=== PATIENT | female | born 1950 | race Caucasian/White ===

== ENCOUNTER 2020-10-08 14:16 | Emergency (ER) | payer MEDICARE, SELFPAY ==
[2020-10-08 14:17] VITALS: BP 119/62; PULSE 69; RESP 14; TEMP 36.3; O2SAT 100; BMI 25.8
[2020-10-08 14:22] VITALS: BP 119/62; PULSE 69; RESP 14; TEMP 36.3; O2SAT 100
--- NOTE | 2020-10-08 14:32 | EKG12_ITS ---
Test Reason : CP Blood Pressure : / mmHG Vent. Rate : 061 BPM Atrial Rate : 061 BPM P-R Int : 144 ms QRS Dur : 068 ms QT Int : 424 ms P-R-T Axes : 029 004 021 degrees QTc Int : 426 ms Normal sinus rhythm Normal ECG Confirmed by CHIDI CUEVAS, CAROLYNN ([id number]), video effects editor MARY BARTON ([id number]) on 10/10/2020 8:47:39 AM Referred By: ALEJANDRO Confirmed By:CAROLYNN MURILLO MD
--- NOTE | 2020-10-08 14:40 | RAD_ITS ---
STUDY: X-RAY CHEST REASON FOR EXAM: Female, 70 years old. Epigastric pain, CURRY, sob TECHNIQUE: Single AP portable view of the chest. COMPARISON: None. FINDINGS: EKG electrodes are seen. Hyperinflation. The lungs are clear. There is no demonstrated pleural abnormality. Normal size heart. Normal mediastinum and kannan. Normal visualized pulmonary arteries. There is atherosclerotic calcification of the aortic arch with tortuosity. Normal visualized thoracic spine. Normal visualized ribs, clavicles, and shoulders. There is no demonstrated abnormality of the visualized soft tissue structures of the upper abdomen. RAD/Chest 1 View (Portable) IMPRESSION: Hyperinflation. Electronically Signed: Kaiser Braun, at 14:54 EST , Service support ,
[2020-10-08 14:44] LABS: Absolute Lymphocyte Count 2.16 X10^3/uL (0.83-4.51); Absolute Neutrophil Count 4.4 X10^3/uL (2.0-7.7); Basophil# 0.04 X10^3/uL; Basophil% 0.5 % (0-1); Eosinophils% 2.7 % (0-5); Hematocrit 46.6 % (37-47); Lymphocyte # 2.16 X10^3/ul (4.0); Mean Corp Hgb Conc 32.2 g/dL (32-36); Mean Corpuscular Hgb 30.2 pg (27.0-32.0); Mean Platelet Vol. 8.9 fl (6.2-12.0); Monocyte# 0.62 X10^3/uL; Monocyte% 8.3 % (0-10); NRBC Flagged by Analyzer 0 % (0-5); Neutrophil # 4.38 X10^3/uL (2.7-7.7); Platelet Count 307 K/mm3 (150-450); RBC Distribution Width CV 13.2 % (11.6-14.6); RBC Distribution Width SD 45.1 fl (35.1-43.9); Red Blood Count 4.96 M/mm3 (4.2-5.4); White Blood Count 7.4 K/mm3 (4.4-11.0)
[2020-10-08 14:53] LABS: Prothrombin Time (Protime)PT. 12.8 SECONDS (11.7-14.9)
[2020-10-08 14:59] LABS: Anion Gap 3 (5-15); BUN 12 mg/dL (7-18); BUN/Creat Ratio 15.1 RATIO (10-20); Calcium,Total 10.2 mg/dL (8.5-10.1); Chloride 105 mmol/L (98-107); EST Glomerular Filtration Rate 76 mL/min (>60); Est Glom Filt Rate - Afr Amer 92 mL/min (>60); Glucose 97 mg/dL (74-106); Potassium 3.7 mmol/L (3.5-5.1); Sodium Level 141 mmol/L (136-145)
[2020-10-08 15:13] LABS: Lipase 122 U/L (73-393)
--- NOTE | 2020-10-08 15:17 | ED.DCSUM_ITS ---
- ER Visit Summary Date of Service: 10/08/20 Chief Complaint: Back pain, headache, chest pain History of Present Illness: The patient is a 70 F who has had the above symptoms for 3 days. She states pain starts in the left paraspinal region and radiates forward into her chest. She has had a cough and sinus drainage. She denies fevers. The pain is intermittent in nature. She went to her primary care physician who directed her here. Patient does have a history mitral prolapse. She has no coronary disease history. Denies any exposures to anybody with coronavirus. Physical Examination: Vital signs reviewed. HEENT exam unremarkable. Heart is regular rate and rhythm without murmurs. Lungs are clear to auscultation. Abdomen is soft and nontender. Extremities reveal no edema. Peripheral pulses are equal. Skin exam normal. Neurologic exam normal. Test Results: [EKG is sinus rhythm with rate of 61. No ST changes. Laboratory studies are unremarkable except for a CO2 of 33. D-dimer and troponin are normal. Chest x-ray shows chronic hyperinflation. Emergency Department Course and Treatment: The patient looks very well. She is dealing with some sinus drainage. I will give her Mucinex D to help with this. I do not feel she needs any admission for any cardiac issues as this is atypical in nature. She will call her doctor for follow-up. Treatment Plan: [] Disposition: Discharge Impression: Sinusitis, back pain headache This note was generated with [employer] dictation software. It may contain incorrect words, spelling, and punctuation that were not noted in review of the chart prior to signing ED Disposition - Plan for ED Patient: Disposition: Home or Assisted Living Instructions: ED Sinusitis No Abx Prescriptions: Guaifenesin/Pseudoephedrne HCl [Mucinex D ER 600-60 mg Tablet] 1 ea PO BID #[id number] tab.er.12h Transmission Status: Pending to [id number] Referrals: Samuel Coley MD [Primary Care Provider] -
[2020-10-08 16:03] VITALS: BP 104/68; PULSE 71; RESP 16; O2SAT 100
--- NOTE | 2020-10-08 16:04 | ED.RN ---
IV DC'ED, CATHETER INTACT, SMALL GAUZE DRESSING PLACED. DISCHARGE INSTRUCTIONS GIVEN TO AND REVIEWED WITH PATIENT, PATIENT DENIES QUESTIONS OR CONCERNS AND VOICES UNDERSTANDING OF DISCHARGE INSTRUCTIONS. PT AMBULATES OUT OF ROOM WITHOUT DIFFICULTY.
== END 2020-10-08 16:06 | disposition home or self-care (01) ==
PROVIDERS: Emergency Provider Emergency Medicine; PCP Family Medicine
DX: J32.9 Chronic sinusitis, unspecified (principal); M54.9 Dorsalgia, unspecified; I34.1 Nonrheumatic mitral (valve) prolapse
CPT/HCPCS: 71045; 80048; 83690; 84484; 85025; 85379; 85610; 93005; 99285

== ENCOUNTER 2021-05-24 17:32 | Emergency (ER) | payer MEDICARE, SELFPAY ==
[2021-05-24 17:33] VITALS: BP 121/58; PULSE 72; RESP 16; TEMP 36.4; O2SAT 99; BMI 25.7
[2021-05-24 17:43] VITALS: BP 121/58; PULSE 72; RESP 16; TEMP 36.4; O2SAT 99
[2021-05-24 17:53] LABS: Absolute Lymphocyte Count 2.23 X10^3/uL (0.83-4.51); Absolute Neutrophil Count 5.1 X10^3/uL (2.0-7.7); Basophil# 0.06 X10^3/uL; Basophil% 0.7 % (0-1); Eosinophil# 0.26 X10^3/uL; Eosinophils% 3.2 % (0-5); Hematocrit 45.3 % (37-47); Hemoglobin 14.9 g/dL (12.0-15.0); Lymphocyte # 2.23 X10^3/ul (0.83-4.51); Lymphocyte % 27.1 % (19-41); Mean Corp Hgb Conc 32.9 g/dL (32-36); Mean Corpuscular Hgb 30.7 pg (27.0-32.0); Mean Corpuscular Volume 93.4 fL (81-99); Monocyte# 0.58 X10^3/uL; Monocyte% 7.1 % (0-10); NRBC Flagged by Analyzer 0 % (0-5); Neutrophil # 5.07 X10^3/uL (2.7-7.7); Neutrophil % 61.7 % (47-70); Platelet Count 308 K/mm3 (150-450); RBC Distribution Width CV 13.3 % (11.6-14.6); RBC Distribution Width SD 45.4 fl (35.1-43.9); Red Blood Count 4.85 M/mm3 (4.2-5.4); White Blood Count 8.2 K/mm3 (4.4-11.0)
[2021-05-24 18:14] LABS: ALB/GLOB Ratio 1.2 RATIO (0.9-2.4); AST(SGOT) 24 U/L (15-37); Alanine Aminotransfer ALT/SGPT 22 U/L (13-56); Alkaline Phosphatase 68 U/L (45-117); Anion Gap 5 (5-15); BUN 19 mg/dL (7-18); BUN/Creat Ratio 24.3 RATIO (10-20); Calcium,Total 9.4 mg/dL (8.5-10.1); Chloride 105 mmol/L (98-107); Creatinine, Serum 0.78 mg/dL (0.55-1.02); EST Glomerular Filtration Rate 77 mL/min (>60); Est Glom Filt Rate - Afr Amer 93 mL/min (>60); Globulin 3.3 g/dL (2.2-4.2); Glucose 91 mg/dL (74-106); Potassium 3.7 mmol/L (3.5-5.1); Protein, Total 7.3 g/dL (6.4-8.2); Sodium Level 139 mmol/L (136-145)
--- NOTE | 2021-05-24 18:55 | US_ITS ---
STUDY: ABDOMINAL ULTRASOUND - RIGHT UPPER QUADRANT REASON FOR VISIT: Female, 70 years old RUQ pain TECHNIQUE: Ultrasound evaluation of the right upper quadrant was performed with real-time and static fields-scale imaging. TECHNICAL QUALITY: Adequate. COMPARISON: None. FINDINGS: Liver: The liver measures 15.4 cm. There is normal echogenicity of the liver. The bile ducts are within normal limits. There is hepatic color flow. The direction of portal flow is hepatopetal. There is no demonstrated mass lesion. Gallbladder: Normal distended gallbladder. The gallbladder wall measures 2 mm. There is a negative sonographic Saul''s sign. There is no pericholecystic fluid. There are no gallstones. Common Bile Duct (C.B.D.): The common bile duct measures 3 mm. Pancreas: Visualized segments are unremarkable. The tail is incompletely seen. There is normal echogenicity of the pancreas. There is no demonstrated pancreatic mass or cyst. Right Kidney: Normal size of the right kidney. The right kidney measures 9.7 x 3.3 x 4.2 cm. Normal renal cortex. The right cortex measures 1.1 cm. There is no demonstrated renal mass or cyst. There is no right hydronephrosis. US/Gallbladder IMPRESSION: Normal right upper quadrant ultrasound examination. Electronically Signed: Yaneth Abreu MD at 20:32 EDT Tel , Service support ,
[2021-05-24 19:01] LABS: Bacteria 0 SEEN /hpf (None Seen); Mucous, Urine 0 SEEN /hpf (<or=2+); Red Blood Cells-Urine 0 SEEN /hpf (0-5); White Blood Cells 0 SEEN /hpf (0-5)
[2021-05-24 19:04] LABS: Color, Urine Yellow (Yellow); Glucose, Dipstick Normal (Normal); Ketone-Dipstick 15 mg/dl (Negative); Leukocyte Esterase-Dipstick Negative /ul (Negative); Nitrite-Dipstick Negative (Negative); Occult Blood-Urine Negative /ul (Negative); Protein-Dipstick Negative (Negative); Urine Bilirubin Dipstick Negative (Negative); Urine Clarity Sl. Cloudy (Clear); Urine Urobilinogen Normal (Normal)
[2021-05-24 19:09] LABS: Lipase 165 U/L (73-393)
[2021-05-24 19:10] LABS: Squamous Epithelial Cells - UA 0-5 SEEN /hpf (5-10)
--- NOTE | 2021-05-24 19:10 | EDS_ITS ---
HPI HPI - GI History of Present Illness Chief Complaint: Abd Pain Narrative Narrative: 70-year-old female presenting with right upper quadrant pain. She states this started at 3. She states it waxes and wanes. It radiates to the right flank and back. Patient states she has nausea as well. Patient states her last meal was at 1 PM and was a turkey sandwich. She denies history of gallbladder disease. She does not have chest pain or shortness of breath. She denies constipation or diarrhea. PFSH PFSH Home Medications NK 05/24/21 [History Last Taken Unknown] Allergy/AdvReac Type Severity Reaction Status Date / Time cortisone Allergy Chest Verified 10/08/20 14:27 tightness AND HIVES Penicillins [PCN] Allergy RASH AND Verified 10/08/20 14:27 VOMITING Social History Smoking Status: Never smoker ROS ROS ED Constitutional Constitutional ED: Denies fever(s) or subjective ENT ENT ED: Denies ear pain, rhinorrhea or sore throat Cardiovascular Cardiovascular: Denies chest pain or palpitations Respiratory/Chest Respiratory/Chest: Denies cough or dyspnea Gastrointestinal Gastrointestinal: Reports abdominal pain and nausea; Denies constipation, diarrhea or vomiting Genitourinary Genitourinary ED: Denies dysuria or hematuria Musculoskeletal Musculoskeletal: Denies arthralgias or myalgias Integumentary Denies abscess or rash Neurologic Neurologic: Denies headache(s) or paresthesias Psychiatric Psychiatric: Denies depression EXAM Physical Exam Const Vital Signs: 05/24/21 17:33 05/24/21 17:43 05/24/21 19:32 Temperature 97.6 F L 97.6 F L Temperature Source Temporal Temporal Pulse Rate 72 72 65 Respiratory Rate 16 16 16 Blood Pressure 121/58 H 121/58 H 112/61 Blood Pressure Mean 79 79 78 Pulse Ox 99 99 99 Oxygen Delivery Method Room Air Room Air Room Air 05/24/21 22:52 Temperature Temperature Source Pulse Rate 61 Respiratory Rate 16 Blood Pressure 118/64 Blood Pressure Mean 82 Pulse Ox 100 Oxygen Delivery Method Room Air Positive well nourished General Appearance ED: NAD HEENT Reports moist mucous membranes normocephalic and atraumatic Eyes PERRL and EOMs intact bilaterally General Eye ED: Negative for scleral icterus Resp normal respiratory effort and clear to auscultation bilaterally Cardio regular rate and regular rhythm GI GI Narrative: Tenderness to palpation in the right upper quadrant. Abdomen is nonperitoneal. Neuro Sensorium / Orientation: alert and oriented to person Psych mental status grossly normal Skin General Skin Exam: Negative for jaundice Lesions: no lesions Rashes: no rashes MDM MDM MDM Narrative Medical decision making narrative: Patient presenting with right upper abdominal pain. She had concern for a gallbladder issue. Lab work today shows that she is a white count of 8.2, hemoglobin 14.9, hematocrit 45.3, platelets 308. CMP shows normal renal function and electrolytes. LFTs are normal. Lipase is within normal limits. Urinalysis is negative for infection. Gallbladder ultrasound is negative for acute findings. At this point I obtained a CT of the abdomen pelvis with IV contrast which also does not show any acute findings. Patient was offered pain medication on arrival and multiple times throughout her stay however she refuses and states she does not want anything too strong. She was offered antiemetics as well and states she does not want this. After negative work-up she was still having pain and I offered her something for pain before leaving but she states that she does not want this. She did ask for a prescription for something for pain for home although I told her I cannot write her prescription when I did not find any diagnoses that would warrant it. She was offered an oxycodone here but she states she does not want anything not strong. Her voiced concern that he wanted her to stay however she is adamant that she wants to go home. She was offered follow-up with general surgery in case she possibly needs an upper endoscopy and she declines this and states she will go to her primary care physician. Patient is discharged in stable condition. Impression: 1. Abdominal pain unknown cause Lab Data Labs: Laboratory Results - last 24 hr 05/24/21 05/24/21 05/24/21 17:42 17:42 17:42 WBC 8.2 RBC 4.85 Hgb 14.9 Hct 45.3 MCV 93.4 MCH 30.7 MCHC 32.9 RDW Std Deviation 45.4 H RDW Coeff of Kate 13.3 Plt Count 308 MPV 9.0 Immature Gran % (Auto) 0.200 Neut % (Auto) 61.7 Lymph % (Auto) 27.1 Hunt % (Auto) 7.1 Eos % (Auto) 3.2 Baso % (Auto) 0.7 Absolute Neuts (auto) 5.1 Absolute Lymphs (auto) 2.23 Nucleated RBC % 0 Sodium 139 Potassium 3.7 Chloride 105 Carbon Dioxide 29.0 Anion Gap 5 BUN 19 H Creatinine 0.78 Estim Creat Clear Calc 37.60 Est GFR (MDRD) Af Amer 93 Est GFR (MDRD) Non-Af 77 BUN/Creatinine Ratio 24.3 H Glucose 91 Calcium 9.4 Total Bilirubin 0.40 AST 24 ALT 22 Alkaline Phosphatase 68 Total Protein 7.3 Albumin 4.0 Globulin 3.3 Albumin/Globulin Ratio 1.2 Lipase 165 Urine Color Urine Clarity Urine pH Ur Specific [place] Urine Protein Urine Glucose (UA) Urine Ketones Urine Occult Blood Urine Nitrite Urine Bilirubin Urine Urobilinogen Ur Leukocyte Esterase Urine RBC Urine WBC Ur Squamous Epith Cells Urine Bacteria Urine Mucus 05/24/21 18:50 WBC RBC Hgb Hct MCV MCH MCHC RDW Std Deviation RDW Coeff of Kate Plt Count MPV Immature Gran % (Auto) Neut % (Auto) Lymph % (Auto) Hunt % (Auto) Eos % (Auto) Baso % (Auto) Absolute Neuts (auto) Absolute Lymphs (auto) Nucleated RBC % Sodium Potassium Chloride Carbon Dioxide Anion Gap BUN Creatinine Estim Creat Clear Calc Est GFR (MDRD) Af Amer Est GFR (MDRD) Non-Af BUN/Creatinine Ratio Glucose Calcium Total Bilirubin AST ALT Alkaline Phosphatase Total Protein Albumin Globulin Albumin/Globulin Ratio Lipase Urine Color Yellow Urine Clarity Sl. Cloudy Urine pH 6.0 Ur Specific [place] 1.010 Urine Protein Negative Urine Glucose (UA) Normal Urine Ketones 15 H Urine Occult Blood Negative Urine Nitrite Negative Urine Bilirubin Negative Urine Urobilinogen Normal Ur Leukocyte Esterase Negative Urine RBC 0 SEEN Urine WBC 0 SEEN Ur Squamous Epith Cells 0-5 SEEN Urine Bacteria 0 SEEN Urine Mucus 0 SEEN Radiography Diagnostic Testing: Radiology Impression Gallbladder Ultrasound 05/24/21 18:55 IMPRESSION: Normal right upper quadrant ultrasound examination. Electronically Signed: Yaneth Abreu MD at 20:32 EDT Tel , Service support , Abdomen/Pelvis CT 05/24/21 21:39 IMPRESSION: 1. No acute findings. 2. Old granulomatous disease. 3. L5 spondylolysis. Electronically Signed: Yaneth Abreu MD at 23:16 EDT Tel , Service support , Discharge Plan Triage Chief Complaint: Abd Pain ED Provider: Saw Israel Dx/Rx/DC Orders Instructions: ED Abdominal Pain Unkn Cause Fem Prescriptions: No Action NK RF: 0 Primary Care Provider: Samuel Coley Referrals: Samuel Coley MD [Primary Care Provider] - Disposition Disposition: Home, Self Care
[2021-05-24 19:32] VITALS: BP 112/61; PULSE 65; RESP 16; O2SAT 99
--- NOTE | 2021-05-24 21:39 | CT_ITS ---
STUDY: CT ABDOMEN AND PELVIS WITH CONTRAST REASON FOR EXAM: Female, 70 years old. abdominal pain RADIATION DOSAGE (If Supplied By Facility): CTDIvol = ( 14.60 ) mGy, DLP = ( 576.97 ) mGycm TECHNIQUE: Transaxial images were obtained from the dome of the diaphragm to the symphysis pubis without oral contrast. IV 100mL Isovue-[id number] was administered. Sagittal and coronal images were reconstructed. Individualized dose optimization techniques were used for this CT. COMPARISON: None. FINDINGS: Lung bases are clear. Heart size is normal. The liver is unremarkable. The gallbladder is unremarkable. Multiple splenic granulomatous calcifications. The spleen is otherwise unremarkable. Pancreas is unremarkable. The adrenal glands are normal. The kidneys are unremarkable. No stones or hydronephrosis. The aorta is normal in caliber. There is no free fluid, free air or organized collection. No bowel obstruction or inflammatory change. Normal appendix. Urinary bladder is unremarkable. Normal abdominal wall. Bilateral L5 spondylolysis. No spondylolisthesis. No acute osseous abnormality. CT/Abdomen/Pelvis W IV Cont ONLY IMPRESSION: 1. No acute findings. 2. Old granulomatous disease. 3. L5 spondylolysis. Electronically Signed: Yaneth Abreu MD at 23:16 EDT Tel , Service support ,
[2021-05-24 22:52] VITALS: BP 118/64; PULSE 61; RESP 16; O2SAT 100
== END 2021-05-24 23:44 | disposition home or self-care (01) ==
PROVIDERS: Emergency Provider Student in an Organized Health Care Education/Training Program; PCP Family Medicine
DX: R10.11 Right upper quadrant pain (principal); R11.0 Nausea
CPT/HCPCS: 74177; 76705; 80053; 81001; 83690; 85025; 99283; J7050; Q9967; A4216

== ENCOUNTER → 2021-08-06 10:12 | Outpatient (CLI) | payer MEDICARE, SELFPAY ==
[2021-06-14 08:09] VITALS: BMI 26.2
--- NOTE | 2021-08-06 10:29 | MRI_ITS ---
STUDY: MRI THORACIC SPINE WITHOUT CONTRAST REASON FOR EXAM: Female, 70 years old. pain TECHNIQUE: Standardized fat and water weighted pulse sequences were obtained in the sagittal and axial planes. COMPARISON: None. FINDINGS: Normal kyphosis of the thoracic spine. There is no substantial scoliosis. T1-2, T2-3, T3-4, T4-5, T5-6, T6-7, T7-8, T8-9, T9-10, T10-11, T11-12: Normal endplates. Normal disc hydration, heights and morphology of the corresponding intervertebral discs. Normal central canal and intervertebral neural foramina at the corresponding levels. Normal visualized thoracic cord. Normal conus medullaris that terminates at the L1.. The soft tissue structures are unremarkable. MRI/Spine Thoracic (Routine) IMPRESSION: Normal unenhanced MRI examination of the thoracic spine. Electronically Signed: Francis Bean MD at 14:13 EDT Tel , Service support ,
== END ==
PROVIDERS: PCP Family Medicine; Referring Provider Orthopaedic Surgery; Visit Provider Orthopaedic Surgery
DX: M51.24 Other intervertebral disc displacement, thoracic region (principal); G58.8 Other specified mononeuropathies
CPT/HCPCS: 72146

== ENCOUNTER → 2022-04-10 | Outpatient (CLI) | payer MEDICARE, SELFPAY | END | disposition home or self-care (01) | LOC: SL 10:01 | PROVIDERS: PCP Family Medicine; Visit Provider Family Medicine | DX: Z00.00 Encounter for general adult medical examination without abnormal findings (principal) ==

== ENCOUNTER → 2022-05-06 | Outpatient (CLI) | payer MEDICARE, SELFPAY | END | disposition home or self-care (01) | LOC: SL 11:31 | PROVIDERS: PCP Family Medicine; Visit Provider Nurse Practitioner Family | DX: R69 Illness, unspecified (principal) ==

== ENCOUNTER → 2022-05-29 | Outpatient (CLI) | payer MEDICARE, SELFPAY | END | disposition home or self-care (01) | LOC: SL 09:03 | PROVIDERS: PCP Family Medicine; Visit Provider Nurse Practitioner Family | DX: R69 Illness, unspecified (principal) ==

== ENCOUNTER → 2022-07-15 | Outpatient (CLI) | payer MEDICARE, SELFPAY | END | disposition home or self-care (01) | LOC: SL 11:23 | PROVIDERS: PCP Family Medicine; Visit Provider Nurse Practitioner Family | DX: R69 Illness, unspecified (principal) ==

== ENCOUNTER → 2023-04-03 | Outpatient (CLI) | payer MEDICARE, SELFPAY | END | disposition home or self-care (01) | LOC: SL 08:50 | PROVIDERS: PCP Family Medicine; Visit Provider Family Medicine | DX: Z00.00 Encounter for general adult medical examination without abnormal findings (principal) ==

== ENCOUNTER → 2024-04-19 | Outpatient (CLI) | payer MEDICARE, SELFPAY | END | disposition home or self-care (01) | LOC: SL 09:39 | PROVIDERS: PCP Family Medicine; Visit Provider Family Medicine | DX: R69 Illness, unspecified (principal) ==

== ENCOUNTER 2025-04-27 22:14 | Observation (INO) | payer MEDICARE, SELFPAY ==
[2025-04-27 22:15] VITALS: BP 105/63; PULSE 71; RESP 16; TEMP 35.8; O2SAT 97
--- NOTE | 2025-04-27 22:44 | CT_ITS ---
PROCEDURE: SINUS/FACIAL BONE REASON FOR EXAM: FALL TECHNIQUE: CT of the paranasal sinuses without contrast. Coronal and Sagittal reconstruction series were provided. One or more dose reduction techniques were used (e.g., Automated exposure control, adjustment of the mA and/or kV according to patient size, use of iterative reconstruction technique). COMPARISON: None. FINDINGS: Frontal: Clear. Ethmoid: Clear. Sphenoid: Clear. Maxillary: Tiny nondisplaced fracture of the floor of the left orbit. Trace fluid level in the left maxillary sinus. No evidence of ocular muscle herniation. Turbinates: Unremarkable Nasal Septum: Leftward deviation of the bony nasal septum by 3 mm. Mastoids/Middle Ears: Clear. Soft tissue swelling/hematoma overlying the left frontal bone. Absent little traverse ocular lenses. The globes are intact. CT/Sinus/Facial Bone IMPRESSION: Tiny nondisplaced fracture of the left maxillary sinus roof of undetermined age with trace fluid within the left maxillary sinus. Soft tissue swelling/hematoma overlying the left frontal bone. Reading Location: [id number]
--- NOTE | 2025-04-27 22:45 | CT_ITS ---
PROCEDURE: BRAIN/HEAD WITHOUT CONTRAST 04/27/2025 REASON FOR EXAM: INJURY/PAIN TECHNIQUE: Head CT without intravenous contrast. Coronal and Sagittal reconstruction series were provided. One or more dose reduction techniques were used (e.g., Automated exposure control, adjustment of the mA and/or kV according to patient size, use of iterative reconstruction technique. RADIATION DOSE SUMMARY: DLP: 880.47 mGycm COMPARISON: None. FINDINGS: Brain: No evidence of acute hemorrhage or infarction. Mild chronic microvascular ischemia. CSF Spaces: Mild generalized cerebral atrophy Bones: The calvarial vault and skull base are intact. See same day CT face for facial bone details. Soft tissue swelling/hematoma overlying the left anterior frontal bone. CT/Brain/Head without Contrast IMPRESSION: No acute intracranial abnormality. See same-day CT face for facial bone details. Reading Location: [place] [id number]
--- NOTE | 2025-04-27 22:46 | ED.VIS.FALL ---
HPI HPI - Fall History of Present Illness Chief Complaint: Fall Informant: patient, spouse/S.O. and family Occured/Mechanism Occurred: Today Mechanism/Context: Yes same level fall and Yes cannot recall fall Pain/Injury Location: Left periorbital area and left occipital scalp Pain Location: head Worsened by: Nothing Relieved by: Nothing Associated Symptoms Associated Symptoms: Positive for Amnesia; Negative for Parasthesias, Weakness, Inability to ambulate or Loss of consciousness Narrative Narrative: Patient presents after a fall that occurred tonight. Patient was talking on the phone on her back deck when she fell. heard the patient scream and when he went out to check on her she was laying on the deck. Patient does not remember any events of the day. Patient was unsure if she had any loss of consciousness. Patient admits to some pain and swelling over the left periorbital area. Patient also hit the back of her head as there is some bleeding coming from the occipital scalp. PFSH PFS Medical History No active medical problems Home Medications ?Medication ?Instructions ?Recorded ?Last Taken ?Type coenzyme Q10 30 mg chewable tablet 30 mg PO DAILY 04/28/25 Unknown History (Chew Q) ezetimibe 10 mg tablet 10 mg PO DAILY 04/28/25 Unknown History multivitamin (Daily Multi-Vitamin 1 tab PO DAILY 04/28/25 Unknown History tablet) Allergy/AdvReac Type Severity Reaction Status Date / Time bee pollen Allergy Severe Hives, Verified 04/27/25 22:15 chest pain, difficulty breathing shrimp Allergy Severe Anaphylaxis Verified 04/27/25 22:15 cortisone Allergy Intermediate Chest Verified 04/27/25 22:15 tightness AND HIVES Penicillins (PCN) Allergy RASH, Verified 04/27/25 22:15 nausea, VOMITING, and difficulty breathing Family History Father Melanoma Mother Small cell carcinoma Son Synovial sarcoma Brother Parkinsons disease Surgical History Hx of tonsillectomy Social History household members: spouse housing: house Smoking Status: Never smoker alcohol intake: current alcohol intake frequency: a few times a week what type of physical activity do you participate in: other details: gardening, forest management, golf, pickle ball do you feel safe at home: Yes ROS ROS ED Constitutional Constitutional ED: Denies chills or fever(s) Eyes Eyes: Denies blurry vision or change in vision ENT ENT ED: Denies rhinorrhea or sore throat Cardiovascular Cardiovascular: Denies chest pain or palpitations Respiratory/Chest Respiratory/Chest: Denies cough or dyspnea Gastrointestinal Gastrointestinal: Reports nausea and vomiting Genitourinary Genitourinary ED: Denies dysuria or hematuria Musculoskeletal Musculoskeletal: Denies back pain or neck pain Integumentary Denies abscess or rash Neurologic Neurologic: Reports headache(s); Denies weakness Allergic/Immunologic Allergic/Immunologic ED: Denies mouth swelling or urticaria EXAM Physical Exam Const Vital Signs: 04/27/25 22:15 04/27/25 23:14 04/27/25 23:14 Temperature 96.5 F L Temperature Source Temporal Pulse Rate 71 73 Respiratory Rate 16 15 Respiratory Effort Normal Respiratory Depth Normal Respiratory Pattern Normal Blood Pressure 105/63 121/64 H Blood Pressure Mean 77 83 Pulse Ox 97 97 Oxygen Delivery Method Room Air Room Air 04/28/25 00:14 Temperature Temperature Source Pulse Rate 76 Respiratory Rate 14 Respiratory Effort Respiratory Depth Respiratory Pattern Blood Pressure 110/52 L Blood Pressure Mean 71 Pulse Ox 97 Oxygen Delivery Method Room Air Positive well nourished and well developed General Appearance ED: well developed and NAD HEENT HEENT Narrative: There is edema and ecchymosis of the left periorbital area. There is edema of the left upper eyelid. There is some mild tenderness over the superior lateral aspect of the orbit. There is no bony crepitance or step-off noted. There is also an abrasion over the left occipital scalp. There is dried blood noted in the hair. Neck full ROM and supple Resp normal respiratory effort and clear to auscultation bilaterally Cardio regular rate and regular rhythm GI non-tender and non-distended Palpation: soft Neuro oriented x3, CN's II-XII intact bilaterally, moves all extremities, no focal motor deficits and no sensory deficits noted Cal[place]so Coma Scale: document GCS findings Spontaneous Obeys Commands Oriented 15 Sensorium / Orientation: alert Motor Exam: strength 5/5 throughout Psych mental status grossly normal MDM MDM MDM Narrative Medical decision making narrative: Differential diagnosis includes intracranial bleeding, orbital fracture, concussion, and facial contusion. CT scan of the brain will be obtained to assess for intracranial bleeding. CT scan of the facial bones will be obtained to assess for orbital fracture and facial fracture. Lab Data Labs: Laboratory Results - last 24 hr 04/27/25 22:32 WBC 10.7 RBC 4.83 Hgb 14.9 Hct 44.5 MCV 92.1 MCH 30.8 MCHC 33.5 RDW Std Deviation 44.4 H RDW Coeff of Kate 13.2 Plt Count 310 MPV 9.2 Immature Gran % (Auto) 2.000 H Neut % (Auto) 60.2 Lymph % (Auto) 27.0 [place] % (Auto) 7.2 Eos % (Auto) 2.9 Baso % (Auto) 0.7 Absolute Neuts (auto) 6.5 Absolute Lymphs (auto) 2.90 Nucleated RBC % 0 Radiography Diagnostic Testing: Clinical Impression(s) from Imaging Studies Facial/Sinus 04/27/25 22:44 IMPRESSION: Tiny nondisplaced fracture of the left maxillary sinus roof of undetermined age with trace fluid within the left maxillary sinus. Soft tissue swelling/hematoma overlying the left frontal bone. Reading Location: [id number] Brain [address] 04/27/25 22:45 IMPRESSION: No acute intracranial abnormality. See same-day CT face for facial bone details. Reading Location: [id number] CT scan of the brain was obtained. There is no acute intracranial abnormality. This was interpreted by the radiologist and was also independently reviewed by myself. CT scan of the facial bones was obtained. There is a tiny nondisplaced fracture of the left maxillary sinus roof with trace fluid within the left maxillary sinus. There is also soft tissue swelling over the left frontal bone. Management Discussion w/another healthcare provider: Hospitalist Treatment and Re-Evaluation Narrative: Patient was given a tetanus booster. Patient attempted ambulation and was very unsteady on her feet. The scalp was cleaned. There is only a small superficial abrasion noted. There is no laceration that requires repair. Since patient was unsteady and cannot remember any of the events during the day, I recommended observation. Case was discussed with the hospitalist. He will admit the patient for observation. Family understood and was agreeable with the plan. All questions were answered. Discharge Plan Dx/Rx/DC Orders Clinical Impression: Concussion, Orbital floor fracture, Fall Disposition Disposition: Acute Care Hospital [facility]
[2025-04-27 23:14] VITALS: BP 121/64; PULSE 73; RESP 15; O2SAT 97
[2025-04-28] VITALS (7 sets, daily range): BP systolic 109–131; BP diastolic 52–78; PULSE 73–86; RESP 14–17; TEMP 36.5–36.9; O2SAT 95–100; BMI 29.5; BMI 27.5
[2025-04-28] MEDS: 0.9% Normal Saline (1000mL) 1,000 ML 1000 ML IV (00:11)
[2025-04-28 00:21] LABS: Absolute Neutrophil Count 6.5 X10^3/uL (2.0-7.7); Basophil# 0.08 X10^3/uL; Basophil% 0.7 % (0-1); Eosinophil# 0.31 X10^3/uL; Eosinophils% 2.9 % (0-5); Hematocrit 44.5 % (37-47); Hemoglobin 14.9 g/dL (12.0-15.0); Mean Corp Hgb Conc 33.5 g/dL (32-36); Mean Corpuscular Hgb 30.8 pg (27.0-32.0); Mean Corpuscular Volume 92.1 fL (81-99); Mean Platelet Vol. 9.2 fl (6.2-12.0); Monocyte# 0.77 X10^3/uL; Monocyte% 7.2 % (0-10); NRBC Flagged by Analyzer 0 % (0-5); Neutrophil # 6.47 X10^3/uL (2.7-7.7); Neutrophil % 60.2 % (47-70); Platelet Count 310 K/mm3 (150-450); RBC Distribution Width CV 13.2 % (11.6-14.6); RBC Distribution Width SD 44.4 fl (35.1-43.9); Red Blood Count 4.83 M/mm3 (4.2-5.4); White Blood Count 10.7 K/mm3 (4.4-11.0)
--- NOTE | 2025-04-28 00:36 | PCM.HP.STD ---
HPI - General General Date of Admission: 04/28/25 HPI Narrative LUCIO STONE, is a 74 F who presents to the hospital after mechanical fall. She was sitting on her deck talking with her friend from [place] and having a tequila when it appears that she tried to get down from the hightop deck chair and probably lost her balance and hit her head on the railing before falling to the ground. She has no recollection of the fall. She states that she has been feeling well over the last couple days, no fevers or chills. No lightheadedness or dizziness. Earlier in the morning today she had been gardening. In the ER she has a large hematoma and cannot open her left eye due to swelling. She denies any significant ocular pain with movement but I cannot assess visual acuity. [facility] Medical History No active medical problems Home Medications ?Medication ?Instructions ?Recorded ?Last Taken ?Type coenzyme Q10 30 mg chewable tablet 30 mg PO DAILY 04/28/25 Unknown History (Chew Q) ezetimibe 10 mg tablet 10 mg PO DAILY 04/28/25 Unknown History multivitamin (Daily Multi-Vitamin 1 tab PO DAILY 04/28/25 Unknown History tablet) Allergy/AdvReac Type Severity Reaction Status Date / Time bee pollen Allergy Severe Hives, Verified 04/27/25 22:15 chest pain, difficulty breathing shrimp Allergy Severe Anaphylaxis Verified 04/27/25 22:15 cortisone Allergy Intermediate Chest Verified 04/27/25 22:15 tightness AND HIVES Penicillins (PCN) Allergy RASH, Verified 04/27/25 22:15 nausea, VOMITING, and difficulty breathing Family History Father Melanoma Mother Small cell carcinoma Son Synovial sarcoma Brother Parkinsons disease Surgical History Hx of tonsillectomy Social History household members: spouse housing: house Smoking Status: Never smoker alcohol intake: current alcohol intake frequency: a few times a week what type of physical activity do you participate in: other details: gardening, forest management, golf, pickle ball do you feel safe at home: Yes ROS Constitutional Constitutional: Denies chills, fatigue, fever(s) or malaise Eyes Eyes: Denies blurry vision ENT HEENT: Reports facial pain; Denies headache(s) or nasal discharge Cardiovascular Cardiovascular: Denies chest pain, dyspnea on exertion or syncope Respiratory/Chest Respiratory/Chest: Denies cough, shortness of breath at rest or shortness of breath with exertion Gastrointestinal Gastrointestinal: Denies constipation, diarrhea, nausea or vomiting Genitourinary Genitourinary: Denies dysuria Neurologic Neurologic: Denies focal weakness, numbness or tremor(s) Psychiatric Psychiatric: Denies anxiety or depression Vital Signs Vital Signs Vital Signs: 04/27/25 22:15 04/27/25 23:14 04/27/25 23:14 Temperature 96.5 F L Temperature Source Temporal Pulse Rate 71 73 Respiratory Rate 16 15 Respiratory Effort Normal Respiratory Depth Normal Respiratory Pattern Normal Blood Pressure 105/63 121/64 H Blood Pressure Mean 77 83 Pulse Ox 97 97 Oxygen Delivery Method Room Air Room Air 04/28/25 00:14 Temperature Temperature Source Pulse Rate 76 Respiratory Rate 14 Respiratory Effort Respiratory Depth Respiratory Pattern Blood Pressure 110/52 L Blood Pressure Mean 71 Pulse Ox 97 Oxygen Delivery Method Room Air Weight Weight: 151 lb 0.266 oz Body Mass Index (BMI) 29.5 Physical Exam Narrative General: Alert, Oriented x3, Cooperative, No apparent distress HEENT: Left eye cannot be evaluated, right eye is EOMI there is a reactive pupil. Left-sided facial swelling and bruising Oral: Moist Mucosa Neck: Supple, No JVD Lungs: Diminished, Normal air movement, No rhonchi, No wheeze, No rales Cardiovascular: Regular rate, Regular Rhythm, Normal S1, Normal S2, No murmurs Abdomen: Soft, Non Tender, Non-Distended, No Hepato-splenomegaly Extremities: No edema, Capillary Refill Less than 3 Seconds Skin: No rashes, No breakdown Musculoskeletal: No Tenderness to Palpation of Joints or Extremities Neurological: No focal neurological deficits, Motor Exam 5/5 strength throughout, Sensory exam intact to light touch and pain, amnesia surrounding her fall Psych/Mental Status: Normal Affect, Appropriate Results Lab / Micro Data 04/27/25 22:32 Labs: Laboratory Results - last 24 hr 04/27/25 22:32: WBC 10.7, RBC 4.83, Hgb 14.9, Hct 44.5, MCV 92.1, MCH 30.8, MCHC 33.5, RDW Std Deviation 44.4 H, RDW Coeff of Kate 13.2, Plt Count 310, MPV 9.2, Immature Gran % (Auto) 2.000 H, Neut % (Auto) 60.2, Lymph % (Auto) 27.0, [place] % (Auto) 7.2, Eos % (Auto) 2.9, Baso % (Auto) 0.7, Absolute Neuts (auto) 6.5, Absolute Lymphs (auto) 2.90, Nucleated RBC % 0 Imaging Radiology Impression Facial/Sinus 04/27/25 22:44 IMPRESSION: Tiny nondisplaced fracture of the left maxillary sinus roof of undetermined age with trace fluid within the left maxillary sinus. Soft tissue swelling/hematoma overlying the left frontal bone. Reading Location: [id number] Brain CT 04/27/25 22:45 IMPRESSION: No acute intracranial abnormality. See same-day CT face for facial bone details. Reading Location: [id number] Assessment & Plan Assessment/Plan (1) Orbital floor fracture: (2) Concussion: (3) Fall: PLAN: Plan 1. Concussion with amnesia and left orbital fracture with no entrapment ? She has a tiny nondisplaced fracture of the left maxillary sinus roof, she is able to move her left eye without any significant pain though she says that she has had a cataract surgery so she has had some pain in her left eye since December ? She does not remember the fall she states that before the fall during the day she had felt fine and she was on the deck drinking tequila and talking to her friend from [place] ? 's afraid to take her home this late in the evening with her concussion and her amnesia ? She does have ongoing nausea and left frontal swelling, can use an ice pack over her left face and will continue with Zofran DVT: Ambulation Charges/Coding Visit Charges Inpatient E&M: 90256 Init Hosp L2
[2025-04-28 01:01] LABS: Anion Gap 15 (5-15); BUN 12 mg/dL (4-19); BUN/Creat Ratio 17.6 RATIO (10-20); Calcium,Total 9.5 mg/dL (7.6-11.0); Carbon Dioxide 22.7 mmol/L (21.0-32.0); Chloride 103 mmol/L (98-108); Creatinine, Serum 0.68 mg/dL (0.70-1.20); EST Glomerular Filtration Rate 91 (>60); Estimated Creatinine Clearance 53.28 ml/min (50-250); Glucose 138 mg/dL (70-99); Potassium 3.5 mmol/L (3.3-5.1); Sodium Level 140 mmol/L (133-145)
[2025-04-28 01:10] LABS: Bacteria 0 SEEN /hpf (None Seen); Mucous, Urine 0 SEEN /hpf (<or=2+); Red Blood Cells-Urine 0 SEEN /hpf (0-5); Squamous Epithelial Cells - UA 0 SEEN /hpf (5-10); White Blood Cells 0 SEEN /hpf (0-5)
[2025-04-28 01:22] LABS: Color, Urine Yellow (Yellow); Glucose, Dipstick Normal (Normal); Ketone-Dipstick 5 mg/dl (Negative); Leukocyte Esterase-Dipstick Negative /ul (Negative); Nitrite-Dipstick Negative (Negative); Occult Blood-Urine 25 /ul (Negative); Protein-Dipstick 15 mg/dl (Negative); Urine Bilirubin Dipstick Negative (Negative); Urine Clarity Clear (Clear); Urine Urobilinogen Normal (Normal)
[2025-04-28] MEDS: Ondansetron 4 MG/2 ML Vial IV (09:22)
[2025-04-28] MEDS: Ezetimibe 10 MG Tablet PO (09:22)
[2025-04-28] MEDS: 0.9% Saline Lock 10 ML Syringe IV (09:22)
--- NOTE | 2025-04-28 11:52 | DCINST_ITS ---
Discharge Instructions Diet Discharge Diet: No restrictions DC O2, CPAP, BIPAP needs Home O2 Discharge instructions: No Dressing / Incision Discharge Activity: No Restrictions Follow Up Care Test Results: Test results from this visit will be discussed in further detail at your follow- up appointment, if applicable. Discharge Plan Admission Admit Date/Time: 04/28/25 00:34 Primary Reason for Your Visit: fall Attending Provider: Felice Leonard Primary Care Provider: Samuel Coley Consulting Providers: Ilia Mejia Discharge Orders/Prescriptions Prescriptions: Continued multivitamin [Daily Multi-Vitamin] Tablet 1 tab PO DAILY Chew Q 30 mg tablet,chewable 30 mg PO DAILY ezetimibe 10 mg tablet 10 mg PO DAILY Referrals / Follow Up: [facility] [Provider Group] Samuel Coley MD [Primary Care Provider] - Disposition Disposition (needs filled in before D/C Order can be placed): Home, Self Care
--- NOTE | 2025-04-28 11:52 | PCM.DC.SUM ---
Providers Date of Admission: 04/28/25 Date of Discharge: 04/28/25 Primary Care Physician: Dr. Samuel Coley MD Reason For Visit: FACIAL TRAUMA WITH CONCUSSION Diagnosis Discharge Diagnosis (1) Orbital floor fracture: Status: Acute Code(s): S02.30XA - Fracture of orbital floor, unspecified side, initial encounter for closed fracture (2) Concussion: Status: Acute Code(s): S06.0XAA - Concussion with loss of consciousness status unknown, initial encounter (3) Fall: Status: Acute Code(s): W19.XXXA - Unspecified fall, initial encounter Medications at Discharge Home Medications coenzyme Q10 30 mg chewable tablet (Chew Q) 30 mg PO DAILY 04/28/25 ezetimibe 10 mg tablet 10 mg PO DAILY 04/28/25 multivitamin (Daily Multi-Vitamin tablet) 1 tab PO DAILY 04/28/25 Hospital Course Operations None Procedures - (CT brain, CT facial/sinus) Summary of Care Provided Minutes Spent on Discharge: 35 Hospital Course: Patient is a 74-year-old female who presented [facility] on 04/27/2025 after a fall at home. Short hospital course as noted below. Patient discharged home in stable condition on 04/28. 1. Mechanical fall with concussion with amnesia, tiny left orbital fracture with no entrapment ? Had mechanical fall at home with significant left eye bruising and concussion-like symptoms. CT showed tiny nondisplaced fracture of the left maxillary sinus roof. Notably she was able to move her left eye without any significant pain. Did have cataract surgery in December on the left eye and had mild residual pain from this. Patient does not remember the fall; states before the fall she felt fine and she was sitting on the deck drinking tequila and talking with her friend. Had significant nausea on admission but this resolved by midmorning of 04/28. Patient ambulated without issue and was stable for discharge home on 04/28. Recommended outpatient follow-up with ophthalmology in the near future. 2. Hyperlipidemia ? Continue home Zetia. Total clinical time spent by myself addressing the patient's medical issues, reviewing all the data, and collaborating with patient's care team: 35 minutes. Physical Exam Narrative General: Alert, Oriented x3, Cooperative, No apparent distress HEENT: Left eye cannot be evaluated, right eye is EOMI there is a reactive pupil. Left-sided facial swelling and bruising Oral: Moist Mucosa Neck: Supple, No JVD Lungs: Diminished, Normal air movement, No rhonchi, No wheeze, No rales Cardiovascular: Regular rate, Regular Rhythm, Normal S1, Normal S2, No murmurs Abdomen: Soft, Non Tender, Non-Distended, No Hepato-splenomegaly Extremities: No edema, Capillary Refill Less than 3 Seconds Skin: No rashes, No breakdown Musculoskeletal: No Tenderness to Palpation of Joints or Extremities Neurological: No focal neurological deficits, Motor Exam 5/5 strength throughout, Sensory exam intact to light touch and pain, amnesia surrounding her fall Psych/Mental Status: Normal Affect, Appropriate Weight / BMI Weight Weight: 63.957 kg Body Mass Index (BMI) 27.5 ABG / Lab / Microbiology Data 04/27/25 22:32 04/27/25 22:32 Laboratory: Laboratory Results - last 24 hr 04/27/25 22:32: WBC 10.7, RBC 4.83, Hgb 14.9, Hct 44.5, MCV 92.1, MCH 30.8, MCHC 33.5, RDW Std Deviation 44.4 H, RDW Coeff of Kate 13.2, Plt Count 310, MPV 9.2, Immature Gran % (Auto) 2.000 H, Neut % (Auto) 60.2, Lymph % (Auto) 27.0, [place] % (Auto) 7.2, Eos % (Auto) 2.9, Baso % (Auto) 0.7, Absolute Neuts (auto) 6.5, Absolute Lymphs (auto) 2.90, Nucleated RBC % 0, Sodium 140, Potassium 3.5, Chloride 103, Carbon Dioxide 22.7, Anion Gap 15, BUN 12, Creatinine 0.68 L, Estim Creat Clear Calc 53.28, Est GFR (MDRD) Non-Af 91, BUN/Creatinine Ratio 17.6, Glucose 138 H, Calcium 9.5 04/28/25 00:57: Urine Color Yellow, Urine Clarity Clear, Urine pH 5.0, Ur Specific [place] 1.020, Urine Protein 15 H, Urine Glucose (UA) Normal, Urine Ketones 5 H, Urine Occult Blood 25 H, Urine Nitrite Negative, Urine Bilirubin Negative, Urine Urobilinogen Normal, Ur Leukocyte Esterase Negative, Urine RBC 0 SEEN, Urine WBC 0 SEEN, Ur Squamous Epith Cells 0 SEEN, Urine Bacteria 0 SEEN, Urine Mucus 0 SEEN Radiography Diagnostic Testing: Radiology Impression Facial/Sinus 04/27/25 22:44 IMPRESSION: Tiny nondisplaced fracture of the left maxillary sinus roof of undetermined age with trace fluid within the left maxillary sinus. Soft tissue swelling/hematoma overlying the left frontal bone. Reading Location: [id number] Brain CT 04/27/25 22:45 IMPRESSION: No acute intracranial abnormality. See same-day CT face for facial bone details. Reading Location: [id number] D/C Instructions DC O2, CPAP, BIPAP Needs Home O2 Discharge instructions: No Meaningful Use Info Meaningful Use Meaningful Use Diagnoses (Choose all that apply): None applicable Ischemic Stroke Statin Dosing Therapy Reference: STATIN DOSE THERAPY REFERENCE: * Patients > 75 years receive moderate or high dose statin therapy. * Patients 75 years or YOUNGER should receive HIGH intensity statin dose unless contraindicated. You will be required to document reason for non-treatment if statin daily dose does not meet guidelines. HIGH DOSE STATIN THERAPY DAILY Atorvastatin > than or = to 40 mg Rosuvastatin > than or = to 20 mg Amlodipine + Atorvastatin > than or = to 2.5/40 mg Ezetimibe + Simvastatin 10/80 mg Simvastatin 80mg Discharge Plan Admission Admit Date/Time: 04/28/25 00:34 Primary Reason for Your Visit: fall Attending Provider: Felice Leonard Primary Care Provider: Samuel Coley Consulting Providers: Ilia Mejia Discharge Orders/Prescriptions Prescriptions: Continued multivitamin [Daily Multi-Vitamin] Tablet 1 tab PO DAILY Chew Q 30 mg tablet,chewable 30 mg PO DAILY ezetimibe 10 mg tablet 10 mg PO DAILY Referrals / Follow Up: [facility] [Provider Group] Samuel Coley MD [Primary Care Provider] - Disposition Disposition (needs filled in before D/C Order can be placed): Home, Self Care Charges/Coding Visit Charges Inpatient E&M: 58954 Disch Hosp >30min
== END 2025-04-28 12:55 | disposition home or self-care (01) ==
LOC: ED 04-28 00:29 → PCU 04-28 01:07
PROVIDERS: Admitting Provider Family Medicine; Emergency Provider Emergency Medicine; PCP Family Medicine; Visit Provider Hospitalist
DX: S06.0XAA Concussion with loss of consciousness status unknown, initial encounter (principal); S02.32XA Fracture of orbital floor, left side, initial encounter for closed fracture; S02.40DA Maxillary fracture, left side, initial encounter for closed fracture; R11.0 Nausea; E78.5 Hyperlipidemia, unspecified; W07.XXXA Fall from chair, initial encounter; Y93.89 Activity, other specified; Y92.89 Other specified places as the place of occurrence of the external cause; Z79.899 Other long term (current) drug therapy
CPT/HCPCS: 70450; 70486; 80048; 81001; 85025; 90715; 96361; 96374; 99221; 99285; P9612; A4216; G0378; J2405